=== PATIENT | male | born 1985 | race Caucasian/White ===

== ENCOUNTER 2017-06-22 10:47 | Outpatient (CLI) | payer OTHER | END 2017-06-22 10:48 | disposition home or self-care (01) | LOC: SC 10:47 | PROVIDERS: ATTEND Internal Medicine Pulmonary Disease | DX: G47.10 Hypersomnia, unspecified (principal); R06.83 Snoring; G47.8 Other sleep disorders | CPT/HCPCS: 99203; 99212 ==

== ENCOUNTER 2017-07-21 20:47 | Outpatient (CLI) | payer OTHER | END 2017-07-21 20:48 | disposition home or self-care (01) | LOC: SC 20:47 | PROVIDERS: ATTEND Internal Medicine Pulmonary Disease | DX: G47.33 Obstructive sleep apnea (adult) (pediatric) (principal) | CPT/HCPCS: 95810 ==

== ENCOUNTER 2017-08-03 08:38 | Outpatient (CLI) | payer OTHER | END 2017-08-03 08:39 | disposition home or self-care (01) | LOC: SC 08:38 | PROVIDERS: ATTEND Nurse Practitioner Family | DX: G47.33 Obstructive sleep apnea (adult) (pediatric) (principal) | CPT/HCPCS: 99212; 99214 ==

== ENCOUNTER 2017-09-20 14:58 | Outpatient (CLI) | payer OTHER | END 2017-09-20 14:59 | disposition home or self-care (01) | LOC: SC 14:58 | PROVIDERS: ATTEND Nurse Practitioner Family | DX: G47.33 Obstructive sleep apnea (adult) (pediatric) (principal) | CPT/HCPCS: 99212; 99214 ==

== ENCOUNTER 2018-01-06 08:48 | Outpatient (CLI) | payer OTHER | END 2018-01-06 08:49 | disposition home or self-care (01) | LOC: SC 08:48 | PROVIDERS: ATTEND Nurse Practitioner Family | DX: G47.33 Obstructive sleep apnea (adult) (pediatric) (principal) | CPT/HCPCS: 99212; 99214 ==

== ENCOUNTER 2019-02-28 15:01 | Outpatient (CLI) | payer OTHER | END 2019-02-28 15:02 | disposition home or self-care (01) | LOC: SC 15:01 | PROVIDERS: ATTEND Nurse Practitioner Family | DX: G47.33 Obstructive sleep apnea (adult) (pediatric) (principal) | CPT/HCPCS: 99212; 99214 ==

== ENCOUNTER 2021-04-10 07:45 | Outpatient (CLI) | payer OTHER ==
--- NOTE | 2021-04-10 09:07 | XRAY Report ---
PROCEDURE: Elbow 3 View RT INDICATIONS: RIGHT ELBOW PAIN TECHNIQUE: 3 views of the elbow were acquired. COMPARISON: None FINDINGS: Bones: No fractures or dislocations. No suspicious bony lesions. Minor enthesopathy at the triceps tendon insertion on the ulna. Soft tissues: No elbow joint effusion. No suspicious soft tissue calcifications. IMPRESSION: Minor enthesopathy at the triceps tendon insertion. Correlate with tendinitis. Reviewed by: Kaylie Hernandez MD on 04/10/2021 9:05 AM PDT Approved by: Kaylie Hernandez MD on 04/10/2021 9:05 AM PDT Station ID: [id number]
== END 2021-04-10 23:59 | disposition home or self-care (01) ==
LOC: DI.N 07:45
PROVIDERS: ATTEND Physician Assistant
DX: M25.521 Pain in right elbow (principal); M77.11 Lateral epicondylitis, right elbow